=== PATIENT | female | born 1990 | race Caucasian/White ===

== ENCOUNTER 2017-09-22 18:31 | Day surgery (SDC) | payer OTHER ==
[2017-09-22 19:29] VITALS: BP 120/72; TEMP 99.6; BMI 38.0
--- NOTE | 2017-09-22 20:58 | PDOC.LDHP ---
Labor and Delivery H&P Chief complaint: other (discharge) HPI: 27 yo @ 31.3 WGA by 14.2 wk sono here for pink colored vaginal discharge noted on her underwear for the past 2 hours. Denies any associated ctxs, pelvic pain, juju vaginal bleeding, vaginal itching/pain, dysuria, cloudy urine, flank pain, fevers/chills, or LOF. Reports good movement. No other concerns. Current gestational age (weeks): 31 (3) Dating criteria: second trimester ultrasound (14.2) Grav: 1 Para: 0 Current complications: other (1)tobacco abuse 2)obesity 3)h/o UTI 4) anemia of ) Abnormal US findings: No (normal anatomy, male fetus, EFW 80.6% on 19 wk sono, anterior placenta) Current medications: none Previous surgical history: none Social history: tobacco use - Physical Exam Vital signs reviewed and normal: yes General: NAD, resting, other (does not feel contractions) Heart: RRR Lungs: nonlabored breathing Abdomen: NTTP Extremeties: pitting edema (1+) FHT: category 1 (baseline 125 bpm), variability present (moderate) [place] contractions every: sporadic - Vaginal Exam cm dilated: 0 Effacement: 25% Station: -3 - OB Labs Blood type: A RH: positive Antibody Screen: negative HIV: negative RPR: negative HEPSAg: negative 1 hour GCT: negative (51) GBS: unknown Rubella: immune Additional Labs: Initial Ucx positive for enterobacter s/p treatment w/ negative JULIANO Negative Quad screen A1c 5.1% CT/GC negative Pap NILM - Assessment 27 yo @ 31.3 wks with: - Plan -: 1) Vaginal discharge -VP3 pending -No recent sexual intercourse and previous STD testing negative 2) Painless contractions, PTL r/o -FFN pending, will defer cervical length if negative -Os closed on cervical exam, r/p in 1-2 hours if ctxs persist -Oral hydration -VP3, UA pending 3) SIUP in 3T -Few complications so far, see below 4) Obesity -A1c and 1h GTT WNL - weight ok on 2T US 5) Tobacco abuse -continue to encourage cessation 6) Anemia of -continue iron 7) H/o UTI, s/p negative JULIANO -R/p UA pending <Wil Moreno - Last Filed: 09/22/17 20:54> <Blake Johnson - Last Filed: 09/22/17 21:26> Allergies/Adverse Reactions: Allergies Allergy/AdvReac Type Severity Reaction Status Date / Time No Known Allergies Allergy Verified 09/22/17 19:35 Attending Addendum - Attending Addendum Date/Time: 09/22/172125 I personally evaluated the patient and discussed the management with [Josh] I agree with the History, Examination, Assessment and Plan. <Blake Johnson - Last Filed: 09/22/17 21:26>
[2017-09-22 21:11] LABS: Bilirubin Negative (Negative); Blood, Urine Negative (Negative); Clarity CLEAR (Clear); Glucose, Urine (Dipstick) Negative (Negative); Leukocyte Negative (Negative); Nitrite Negative (Negative); Protein, Urine (Dipstick) Negative (Neg-Trace); Specific Gravity, Urine 1.007 (1.002-1.036)
[2017-09-22 21:14] LABS: Pathc Cast-AUWi Flag 0.29 (0-2.49)
[2017-09-22 21:21] LABS: Bacteria/HPF None Seen HPF (None Seen); Hyaline Casts/LPF 0-3 HYALINE CAST LPF (0-3 Hyaline); RBC/HPF 0-3 HPF (0-3); Squamous Epithelial 0-3 HPF (0-3); WBC/HPF 0-3 HPF (0-3)
[2017-09-22 21:33] LABS: FFN Internal QC Analyzer PASS (PASS); FFN Internal QC Cassette PASS (PASS); Fetal Fibronectin Negative (Negative)
--- NOTE | 2017-09-22 22:22 | PDOC.EVN ---
Event Note - Event Note Event Note: VP3 negative but clinical suspicion high for BV. Will go ahead and discharge and treat empirically for 7 days with metronidazole. Patient has f/u scheduled with PNC in ~10 days. Can have further evaluation at that time if symptoms not resolved. strip remains category I, contractions resolved after hydration. <Wil Moreno - Last Filed: 09/22/17 22:21> Attending Addendum - Attending Addendum Date/Time: 09/22/17 3007 I evaluated the patient and discussed the management with Dr. Moreno. I agree with the History, Examination, Assessment and Plan. <Blake Johnson - Last Filed: 09/22/17 22:46>
== END 2017-09-22 22:54 | disposition home or self-care (01) ==
LOC: L&D/OP 18:31
PROVIDERS: ATTEND Obstetrics & Gynecology
DX: O99.89 Other specified diseases and conditions complicating pregnancy, childbirth and the puerperium (principal); N89.8 Other specified noninflammatory disorders of vagina; O99.333 Smoking (tobacco) complicating pregnancy, third trimester; F17.200 Nicotine dependence, unspecified, uncomplicated; O99.013 Anemia complicating pregnancy, third trimester; O99.213 Obesity complicating pregnancy, third trimester; E66.9 Obesity, unspecified; Z68.38 Body mass index [BMI] 38.0-38.9, adult; Z3A.31 31 weeks gestation of pregnancy
CPT/HCPCS: 81001; 82731; 87480; 87510; 87660

== ENCOUNTER 2017-11-21 22:17 | Inpatient (IN) | payer MEDICAID, OTHER ==
[~2017-11-21 22:17] MED LIST: Bupivacaine HCl 0.5%/Epinephrine 1:200,000/PF 30 ml Vial ONE; Bupivacaine/Epinephrine 0.25% 30 ML VIAL ONE; Lidocaine 2% MPF 10 ML AMP (For Epidural Use) ONE
[2017-11-21] MEDS ORDERED: Ondansetron HCl/PF 4 MG/2 ML Vial IVP PRN (23:17)
[2017-11-21] MEDS ORDERED: Promethazine HCl 25 MG/ML VIAL IM PRN (23:17)
[2017-11-21 23:19] VITALS: BMI 40.4
[2017-11-21] MEDS ORDERED: Ibuprofen 800 MG TAB PO PRN (23:23)
[2017-11-21] MEDS ORDERED: Methylergonovine 0.2 MG/ML VIAL IM PRN (23:23)
[2017-11-21] MEDS ORDERED: Carboprost 250 MCG/ML AMP IM PRN (23:23)
[2017-11-21] MEDS ORDERED: Lidocaine 1% (PF) 30 ML VIAL SC PRN (23:23)
[2017-11-21] MEDS ORDERED: Misoprostol 200 MCG TAB PR PRN (23:23)
[2017-11-21] MEDS: Lactated Ringer's 1,000 ML IV SCH (23:30)
[2017-11-21 23:56] LABS: Hemoglobin 11.6 g/dL (12.0-16.0); Mean Corpuscular HGB CONC 35.1 g/dL (32.0-36.0); Mean Corpuscular Hemoglobin 30.9 pg (27.0-31.0); Mean Corpuscular Volume 88.1 fL (78.0-98.0); Mean Platelet Volume 6.9 fL (7.4-10.4); Platelet Count 348 thou/uL (130-400); RBC Distribution Width 12.7 % (11.5-14.5); Red Blood Cell (RBC) Count 3.76 mill/uL (4.20-5.40); White Blood Cell (WBC) Count 14.6 thou/uL (4.8-10.8)
[2017-11-22] MEDS: Misoprostol 100 MCG TAB VAG SCH ×5 (00:31→18:59)
--- NOTE | 2017-11-22 00:43 | PDOC.FPROB ---
FMR OB H&P: HPI - History of Present Illness Chief Complaint: Elective IOL History of Present Illness: 27YO @ 40.1 weeks consistent w/ 14.2 week sono who presents for an elective induction of labor. has been uncomplicated w/ no abnormal findings on U/S. Patient was /-3 in clinic yesterday. No concerns at this point. Is feeling some contractions periodically and has been feeling baby move. No vaginal discharge, fluid loss, or bleeding. Primary Care Physician: Dr. Latanya Galarza FMR OB H&P: Current - Care : 1 Para: 0 Due date: 11/21/17 - OB Labs Blood type: A RH: positive Antibody Screen: negative HIV: negative RPR: negative HepBsAg: negative Rubella: immune Quad screen: negative Urine drug screen: negative Gonorrhea: negative Chlamydia: negative Pap Smear: WNL 1 hour gtt: 115 - WNL A1c: 5.2 GBS: negative FMR OB H&P: History - Past Medical History PMH: None - OB History OB History: No previous pregnancies. Never had an abnormal pap. - Surgical History Sx History: None. - Social History Social History: + for tobacco abuse: down to 2 cigarettes/day - Family History Family History: DM - grandmother FMR OB H&P: Medications - Current Home Medications: Medication Instructions Recorded Confirmed Type Ferrous Sulfate 325 mg PO DAILY 09/22/17 11/21/17 History 21/Iron Fu/Folic Acid 1 tablet PO DAILY 09/22/17 11/21/17 History [ Complete Caplet] Allergies/Adverse Reactions: Allergies Allergy/AdvReac Type Severity Reaction Status Date / Time No Known Allergies Allergy Verified 09/22/17 19:35 FMR OB H&P: Vital Signs - Maternal Vital signs: Vital Signs - First Documented Temp Pulse Resp BP 98.9 F 99 18 127/73 11/21/17 22:22 11/21/17 22:22 11/21/17 22:22 11/21/17 22:22 - Heart Tones Variability: moderate Deceleration: absent Category: category 1 FMR OB H&P: Physical Exam - Physical Exam General: NAD, awake, alert and oriented HEENT: normocephalic and atraumatic Heart: RRR, normal S1/S2 General: CTAB, no respiratory distress, no wheezing Abdomen: gravid, non-tender Musculoskeletal: normal gait and station, FROM in all four extremities Neurological: cranial nerves II through XII intact, sensation to pain,touch and proprioception grossly normal Skin: no rash, good tugor Psychiatric: normal mood and affect - Pelvic Exam Vulva: no discharge, no blood Presentation: vertex Estimated Weight: 9 lbs FMR OB H&P: Results - Labs Lab results: Laboratory Results - last 24 hr 11/21/17 11/21/17 23:40 23:40 WBC 14.6 H RBC 3.76 L Hgb 11.6 L Hct 33.1 L MCV 88.1 MCH 30.9 MCHC 35.1 RDW 12.7 Plt Count 348 MPV 6.9 L Blood Type A POSITIVE Antibody Screen NEGATIVE FMR OB H&P: A/P - Problem List (1) Term Current Visit: Yes Status: Acute Code(s): Z34.80 - ENCOUNTER FOR SUPRVSN OF NORMAL , UNSP TRIMESTER Assessment and Plan: 27YO @ 40.1 wks consistent with 14.2 wk sono presenting for an elective IOL. - was 50/-3 in clinic yesterday - check @ 24:30 50/-3 and given cytotec - will recheck in 4 hours to evaluate labor progress Discussion: Date/Time: 11/22/1740 This H&P was discussed with Dr. Helm and Dr. Dey who agree with the above documentation and plan.
[2017-11-22 00:48] LABS: Syphilis Antibody Nonreactive (Nonreactive); Syphilis Antibody Index 0.04 S/CO (<1.00 Non-Reactive)
[2017-11-22 00:49] LABS: HBSAg Index 0.17 S/CO (0-0.99); Hep B Surf Ag Non-Reactive S/CO (NonReactive)
--- NOTE | 2017-11-22 04:41 | PDOC.LDPN ---
Labor & Delivery Progress Note - Subjective Subjective: comfortable - Objective Vital signs reviewed and normal: yes General: NAD, resting Uterine fundus: non tender Dilation: 3 Effacement: 50% Station: -2 FHT: category 1, variability present - Assessment (1) Term Code(s): Z34.80 - ENCOUNTER FOR SUPRVSN OF NORMAL , UNSP TRIMESTER Current Visit: Yes Status: Acute Plan: labor augmentation, other (Cytotec for cervical ripening) -: 27YO @ 40.1 wks consistent with 14.2 wk sono presenting for an elective IOL. - Was /-3 in clinic yesterday. - Check @ 04:30 unchanged from 1st check (/-2) so patient was given a second dose of cytotec. - Will recheck in 4 hours to evaluate labor progress.
[2017-11-22] MEDS: Lactated Ringer's 1,000 ML IV SCH ×3 (07:48→19:45)
[2017-11-22] MEDS ORDERED: NS w/ Oxytocin 10 units 500 ML ONE (08:35)
[2017-11-22] MEDS ORDERED: Fentanyl 100 MCG/2 ML VIAL SLOW IVP PRN (08:51)
--- NOTE | 2017-11-22 08:51 | PDOC.LDPN ---
Labor & Delivery Progress Note - Subjective Subjective: comfortable - Objective Vital signs reviewed and normal: yes General: resting Uterine fundus: non tender Dilation: 3 Effacement: 50% Station: -2 FHT: category 1 (120/moderate/+accel/no decel) [place] contractions every: q2-6 min, couplets - Assessment (1) Term Code(s): Z34.80 - ENCOUNTER FOR SUPRVSN OF NORMAL , UNSP TRIMESTER Current Visit: Yes Status: Acute (2) Tobacco abuse Code(s): Z72.0 - TOBACCO USE Current Visit: Yes Status: Acute (3) Obesity affecting Code(s): O99.210 - OBESITY COMPLICATING , UNSPECIFIED TRIMESTER Current Visit: Yes Status: Acute (4) Anemia affecting Code(s): O99.019 - ANEMIA COMPLICATING , UNSPECIFIED TRIMESTER Current Visit: Yes Status: Acute Plan: pitocin for augmentation -: 27 yo at 40.1w (EDC 11/21/17) by LMP/14.2w sono here for elective IOL 1. IOL - S/p cytotec x2, now /-2 with nonpainful contractions - Will augment with pitocin - Epidural when desired 2. Tobacco abuse - Counseled cessation through 3. Anemia of 4. Obesity - 1 hour GTT 58 - a1c 5.1 - Quad screen negative 5. Anterior placenta 6. Pap NILM 7. GBS negative
--- NOTE | 2017-11-22 12:14 | PDOC.LDPN ---
Labor & Delivery Progress Note - Subjective Subjective: comfortable - Objective Vital signs reviewed and normal: yes General: resting Uterine fundus: non tender Dilation: 3 Effacement: 50% (60) Station: -3 FHT: category 1 [place] contractions every: 4 - Assessment (1) Term Code(s): Z34.80 - ENCOUNTER FOR SUPRVSN OF NORMAL , UNSP TRIMESTER Current Visit: Yes Status: Acute (2) Tobacco abuse Code(s): Z72.0 - TOBACCO USE Current Visit: Yes Status: Acute (3) Obesity affecting Code(s): O99.210 - OBESITY COMPLICATING , UNSPECIFIED TRIMESTER Current Visit: Yes Status: Acute (4) Anemia affecting Code(s): O99.019 - ANEMIA COMPLICATING , UNSPECIFIED TRIMESTER Current Visit: Yes Status: Acute -: 27 yo at 40.1w (EDC 11/21/17) by LMP/14.2w sono here for elective IOL 1. IOL - S/p cytotec x2, now /-2 with nonpainful contractions - Continue pitocin for augmentation - Epidural when desired 2. Tobacco abuse - Counseled cessation through 3. Anemia of 4. Obesity - 1 hour GTT 58 - a1c 5.1 - Quad screen negative 5. Anterior placenta 6. Pap NILM 7. GBS negative
--- NOTE | 2017-11-22 15:51 | PDOC.LDPN ---
Labor & Delivery Progress Note - Subjective Subjective: comfortable - Objective Vital signs reviewed and normal: yes General: resting Uterine fundus: non tender Dilation: 3 Effacement: 50% (60) Station: -2 FHT: category 1 (120/mod/+accels/no decels) [place] contractions every: q2 - Assessment (1) Term Code(s): Z34.80 - ENCOUNTER FOR SUPRVSN OF NORMAL , UNSP TRIMESTER Current Visit: Yes Status: Acute (2) Tobacco abuse Code(s): Z72.0 - TOBACCO USE Current Visit: Yes Status: Acute (3) Obesity affecting Code(s): O99.210 - OBESITY COMPLICATING , UNSPECIFIED TRIMESTER Current Visit: Yes Status: Acute (4) Anemia affecting Code(s): O99.019 - ANEMIA COMPLICATING , UNSPECIFIED TRIMESTER Current Visit: Yes Status: Acute -: 27 yo at 40.1w (EDC 11/21/17) by LMP/14.2w sono here for elective IOL 1. IOL - S/p cytotec x2, now /-2 with nonpainful contractions - Continue pitocin augmentation, will offer balloon or AROM - Epidural when desired 2. Tobacco abuse - Counseled cessation through 3. Anemia of 4. Obesity - 1 hour GTT 58 - a1c 5.1 - Quad screen negative 5. Anterior placenta 6. Pap NILM 7. GBS negative
--- NOTE | 2017-11-22 17:18 | PDOC.LDPN ---
Labor & Delivery Progress Note - Subjective Subjective: painful contractions - Objective Vital signs reviewed and normal: yes General: resting Uterine fundus: non tender Dilation: 3 Effacement: 50% (60) Station: -2 FHT: category 1 (120/mod/+accel/no decel) [place] contractions every: q2 Other exam findings: SROM, clear fluid - Assessment (1) Term Code(s): Z34.80 - ENCOUNTER FOR SUPRVSN OF NORMAL , UNSP TRIMESTER Current Visit: Yes Status: Acute (2) Tobacco abuse Code(s): Z72.0 - TOBACCO USE Current Visit: Yes Status: Acute (3) Obesity affecting Code(s): O99.210 - OBESITY COMPLICATING , UNSPECIFIED TRIMESTER Current Visit: Yes Status: Acute (4) Anemia affecting Code(s): O99.019 - ANEMIA COMPLICATING , UNSPECIFIED TRIMESTER Current Visit: Yes Status: Acute Plan: continue plan of care, pitocin for augmentation -: 27 yo at 40.1w (EDC 11/21/17) by LMP/14.2w sono here for elective IOL 1. IOL - S/p cytotec x2, now /-2 with increasingly painful contractions - Continue pitocin augmentation, SROM clear fluid noted on speculum exam before attempt of balloon placement - Epidural when desired 2. Tobacco abuse - Counseled cessation through 3. Anemia of 4. Obesity - 1 hour GTT 58 - a1c 5.1 - Quad screen negative 5. Anterior placenta 6. Pap NILM 7. GBS negative
[2017-11-22] MEDS: Bupivacaine 0.75% 13.4 ML, fentaNYL Citrate/PF 400 MCG in Sodium Chloride 0.9% 78.6 ML EPIDURAL SCH (18:24)
[2017-11-22] MEDS ORDERED: diphenhydrAMINE 50 MG/ML VIAL IVP PRN (19:35)
[2017-11-22] MEDS ORDERED: Promethazine HCl 25 MG/ML VIAL IM PRN (19:35)
[2017-11-22] MEDS ORDERED: ePHEDrine/0.9% NaCl/PF SYRINGE 50 mg/10 ml SLOW IVP PRN (19:35)
[2017-11-22] MEDS ORDERED: Naloxone HCl 0.4 mg/ml Vial IVP PRN ×2 (19:35)
[2017-11-22] MEDS ORDERED: Acetaminophen 325 MG TAB PO PRN (19:35)
[2017-11-22] MEDS ORDERED: Lactated Ringer's 500 ML IV PRN (19:35)
[2017-11-22] MEDS ORDERED: Ondansetron HCl/PF 4 MG/2 ML Vial IVP PRN (19:35)
[2017-11-22] MEDS ORDERED: Eucerin (Mineral Oil/Petrolatum,White) 30 gm Jar TOP PRN (19:35)
[2017-11-22] MEDS ORDERED: Communication Order-Pharmacy FS SCH (19:45)
[2017-11-22] MEDS ORDERED: fentaNYL Citrate/PF 400 MCG, Bupivacaine 0.5% 20 ML in Sodium Chloride 0.9% 72 ML EPIDURAL SCH (19:45)
--- NOTE | 2017-11-22 21:36 | PDOC.LDPN ---
Labor & Delivery Progress Note - Subjective Subjective: comfortable, loss of fluid - Objective Vital signs reviewed and normal: yes General: NAD, resting Uterine fundus: non tender Dilation: 5 Effacement: 90% Station: -2 FHT: category 1, variability present (Accelerations present. ) [place] contractions every: 2-4 minutes Other exam findings: MVUs subadequate at 190-200 over 10 minutes. IUPC placed: yes Resuscitative measures: maternal IV fluids - Assessment (1) Term Code(s): Z34.80 - ENCOUNTER FOR SUPRVSN OF NORMAL , UNSP TRIMESTER Current Visit: Yes Status: Acute -: 27 yo at 40.1w (EDC 11/21/17) by LMP/14.2w sono here for elective IOL. 1. IOL - S/p cytotec x2 & epidural, now /-2 - Continue pitocin augmentation - recheck in 4 hours 2. Tobacco abuse - Counseled cessation through 3. Anemia of - Taking PNV and ferrous sulfate 4. Obesity - 1 hour GTT 58 - a1c 5.1 - Quad screen negative 5. Anterior placenta 6. Pap NILM 7. GBS negative
[2017-11-22] MEDS ORDERED: CEFAZOLIN/Water 2 GM/20 ML SYRINGE ONE (22:50)
[2017-11-22] MEDS ORDERED: NS w/ Oxytocin 10 units 500 ML IV SCH (23:15)
[2017-11-23] MEDS: Bupivacaine 0.75% 13.4 ML, fentaNYL Citrate/PF 400 MCG in Sodium Chloride 0.9% 78.6 ML EPIDURAL SCH
--- NOTE | 2017-11-23 01:27 | PDOC.LDPN ---
Labor & Delivery Progress Note - Subjective Subjective: comfortable - Objective Vital signs reviewed and normal: yes General: NAD, resting Dilation: 10 Effacement: 100% Station: 0 FHT: category 1, variability present [place] contractions every: 2 minutes IUPC placed: yes Resuscitative measures: maternal IV fluids, maternal position change - Assessment (1) Term Code(s): Z34.80 - ENCOUNTER FOR SUPRVSN OF NORMAL , UNSP TRIMESTER Current Visit: Yes Status: Acute -: 27 yo at 40.1w (EDC 11/21/17) by LMP/14.2w sono here for elective IOL. 1. IOL - s/p cytotec x2 & epidural, now - Will let patient labor down until she feels an urge to push - Will recheck ~15-20 minutes 2. Tobacco abuse - Counseled cessation through 3. Anemia of - Taking PNV and ferrous sulfate 4. Obesity - 1 hour GTT 58 - a1c 5.1 - Quad screen negative 5. Anterior placenta 6. Pap NILM 7. GBS negative
[2017-11-23] MEDS: Lactated Ringer's 1,000 ML IV SCH (01:48)
[2017-11-23] MEDS: NS / Oxytocin 40 units/1000ml 1,000 ML IV PRN ×2 (05:23→07:54)
--- NOTE | 2017-11-23 06:25 | PDOC.OPDEL ---
OB Operative/Delivery Note Delivery Dr/Surgeon: Dr. Latanya Galarza Assist: Dr. Vianney Kincaid Pre-Delivery Diagnosis: active labor Procedure/Post Delivery Dx: other (second degree midline perineal laceration s/ p repair) Weeks gestation: 40 (40.2) Anesthesia: epidural - Findings A Sex: male Weight: 10 kg (10lb.8oz.) - 1 min: 9 - 5 min: 9 - Additional Findings/Plan Placenta delivered: spontaneous Repaired Obstetrical Laceration: 2nd degree Estimated blood loss: 1493mL Post delivery plan: routine recovery
[2017-11-23] MEDS ORDERED: Bisacodyl 10 MG SUPP PR PRN (07:45)
[2017-11-23] MEDS ORDERED: NS / Oxytocin 40 units/1000ml 1,000 ML IV SCH (07:45)
[2017-11-23] MEDS ORDERED: Adacel (T-DAP) 0.5 ML VIAL IM ONE (07:45)
[2017-11-23] MEDS ORDERED: Preparation H Ointment 28 GM TUBE PR PRN (07:45)
[2017-11-23] MEDS ORDERED: Milk Of Magnesia 30 ML UDCUP PO PRN (07:45)
[2017-11-23] MEDS ORDERED: Lanolin Ointment 7 GM TUBE TOP PRN (07:45)
[2017-11-23] MEDS ORDERED: diphenhydrAMINE 25 MG CAP PO PRN (07:45)
[2017-11-23] MEDS: Ferrous Sulfate 325 MG TAB PO SCH ×2 (09:10→18:09)
[2017-11-23] MEDS: Prenatal Vitamin 1 TAB PO SCH (09:50)
[2017-11-23] MEDS: Ibuprofen 800 MG TAB PO SCH ×2 (09:50→16:34)
[2017-11-23] MEDS: Docusate Calcium (SURFAK) 240 MG CAP PO SCH ×2 (09:50→21:48)
[2017-11-23] MEDS: Misoprostol 100 MCG TAB VAG SCH ×3 (09:56→10:00)
--- NOTE | 2017-11-23 10:10 | DN-2 ---
DELIVERING PHYSICIAN: Latanya Galarza M.D. ASSISTING PHYSICIAN: Dr. Vianney Kincaid ATTENDING PHYSICIAN: Dr. Eliane Dey. PROCEDURE: Spontaneous vaginal delivery. ANESTHESIA: Epidural. QBL: 1493 mL. PREOPERATIVE DIAGNOSES: 1. Term intrauterine in labor. 2. Obesity. 3. Anemia of . 4. Tobacco abuse. POSTOPERATIVE DIAGNOSES: 1. Term intrauterine , delivered. 2. Obesity. 3. Anemia. 4. Tobacco abuse. 5. hemorrhage. 6. Second degree perineal laceration status post repair. 7. Macrosomic . INDICATIONS: A 27-year-old female, G1, P0, presented for elective induction of labor on 11/21/2017 a t 40.0 week. DELIVERY NOTE: This is a 27-year-old female G1 now P1-0-0-1, at 40.0 weeks who delivered a viable ma sonia at 0511. Following an uneventful antepartum course, a vigorous male infant was delivered o alexi a midline second degree laceration in the right occipital anterior position. Anterior shoulder a nd the remainder of body delivered. No nuchal cord was noted. The head was held down and mouth and nares were bulb suctioned. Cord was clamped and cut after delayed cord clamping at 1 minute and cord blood collected. Placenta delivered intact with 3-vessel cord noted. Fundal massage was performed and the fundus was initially boggy. The cervix and vagina were inspected and found to have a midline second degree laceration. 800 mcg of Cytotec was placed rectally for ongoing poor tone as well as a bimanual massage and bolus of Pitocin. Clots were evacuated from the uterus and she became more fir m. At that time, attention was turned to the midline second degree laceration, which was repaired in the usual fashion with 2-0 and 3-0 Vicryl suture with good approximation and hemostasis. The infant went to nursery in good condition for routine care. Apgars were 9 and 9 at 1 and 5 minutes respectively and the infant was 10 pounds and 8 ounces. The patient tolerated delivery well and went to after routine recovery and care.
[2017-11-23] MEDS ORDERED: Benzocaine/Menthol 20-0.5% 60 ML CAN TOP PRN (11:08)
[2017-11-23] MEDS ORDERED: HYDROcodone/Acetaminophen 5/325 mg Tablet PO PRN ×3 (17:31→18:21)
[2017-11-23] MEDS: HYDROcodone/Acetaminophen 5/325 mg Tablet PO PRN (21:48)
[2017-11-24] MEDS: Ibuprofen 800 MG TAB PO SCH ×4 (05:59→20:08)
[2017-11-24 06:10] LABS: Hemoglobin 8.4 g/dL (12.0-16.0); Mean Corpuscular HGB CONC 34.3 g/dL (32.0-36.0); Mean Corpuscular Hemoglobin 30.9 pg (27.0-31.0); Mean Corpuscular Volume 89.9 fL (78.0-98.0); Mean Platelet Volume 6.9 fL (7.4-10.4); Platelet Count 297 thou/uL (130-400); RBC Distribution Width 12.9 % (11.5-14.5); Red Blood Cell (RBC) Count 2.72 mill/uL (4.20-5.40); White Blood Cell (WBC) Count 16.6 thou/uL (4.8-10.8)
[2017-11-24] MEDS: HYDROcodone/Acetaminophen 5/325 mg Tablet PO PRN (06:17)
--- NOTE | 2017-11-24 08:39 | PDOC.PP ---
Post Progress Note Post Day #: 1 Subjective: Feeling ok. Significant pain with urination and straight cath placed yesterday followed by beck overnight. Ice pack in place now and taking [place] PRN with pain control currently adequate. She does not feel is going well and he is not latching. PO intake tolerated: yes Ambulation: yes Vital Signs (12 hours) Temp Pulse Resp 11/24/17 04:00 98.1 F 95 20 11/24/17 00:00 98.1 F 95 20 Weight Weight 135.171 kg - Physical Examination General: NAD Cardiovascular: no m/r/g, RRR Respiratory: clear to auscultation bilaterally, non-labored breathing Abdominal: + bowel sounds, lochia (minimal), no distention, appropriately TTP Fundus firm & at: umbilicus Deviation from normal: trace edema to mid-[place] BL Skin: no rash Neurological: no gross focal deficits Psychiatric: A&Ox3, normal affect Result Diagrams: 11/24/17 05:43 Additional Labs: Post Labs Blood Type A POSITIVE 11/21/17 23:40 Hep Bs Antigen Non-Reactive S/CO (NonReactive) 11/21/17 23:40 (1) Term Code(s): Z34.80 - ENCOUNTER FOR SUPRVSN OF NORMAL , UNSP TRIMESTER Status: Acute (2) Tobacco abuse Code(s): Z72.0 - TOBACCO USE Status: Acute (3) Obesity affecting Code(s): O99.210 - OBESITY COMPLICATING , UNSPECIFIED TRIMESTER Status: Acute (4) Anemia affecting Code(s): O99.019 - ANEMIA COMPLICATING , UNSPECIFIED TRIMESTER Status : Acute - Assessment/Plan 27 yo now 1001 s/p at 40.2w (EDC 11/21/17) by LMP/14.2w sono 1. PPD #1, PPH and 2nd degree lac - midline 2nd degree lac, s/p repair - difficulty voiding and beck removed this morning - continue pain control, ice packs and will monitor ability to void - will request Meenakshi to work with her today on if able 2. Tobacco abuse - Counseled cessation through - Stressed importance of minimizing/eliminating exposure 3. Anemia of now with PPH - H&H 8.4/24.5 - Consider repeat in a.m., monitor vital signs - Continue PNV and ferrous sulfate 4. Obesity - 1 hour GTT 58 - a1c 5.1 - Quad screen negative 5. Pap NILM 6. GBS negative
[2017-11-24] MEDS: Ferrous Sulfate 325 MG TAB PO SCH ×2 (09:45→17:24)
[2017-11-24] MEDS: Prenatal Vitamin 1 TAB PO SCH (09:45)
[2017-11-24] MEDS: Docusate Calcium (SURFAK) 240 MG CAP PO SCH ×2 (09:45→20:08)
[2017-11-24 21:49] VITALS: BP 118/68; TEMP 98.2
== END 2017-11-24 21:50 | disposition home or self-care (01) | DRG 774 ==
LOC: L&D 22:17 → 3SW 11-23 08:51
PROVIDERS: ADMIT Student in an Organized Health Care Education/Training Program; ATTEND Student in an Organized Health Care Education/Training Program
PROC: 10E0XZZ Delivery of Products of Conception, External Approach (ICD-10-PCS; principal; 2017-11-23)
PROC: 0KQM0ZZ Repair Perineum Muscle, Open Approach (ICD-10-PCS; 2017-11-23)
PROC: 10907ZC Drainage of Amniotic Fluid, Therapeutic from Products of Conception, Via Natural or Artificial Opening (ICD-10-PCS; 2017-11-23)
PROC: 3E033VJ Introduction of Other Hormone into Peripheral Vein, Percutaneous Approach (ICD-10-PCS; 2017-11-23)
DX: O99.02 Anemia complicating childbirth (principal); O72.1 Other immediate postpartum hemorrhage; Z68.41 Body mass index [BMI] 40.0-44.9, adult; O99.214 Obesity complicating childbirth; E66.9 Obesity, unspecified; Z3A.40 40 weeks gestation of pregnancy; Z37.0 Single live birth; O99.334 Smoking (tobacco) complicating childbirth; F17.210 Nicotine dependence, cigarettes, uncomplicated; O70.1 Second degree perineal laceration during delivery; O36.63X0 Maternal care for excessive fetal growth, third trimester, not applicable or unspecified
CPT/HCPCS: 36415; 51702; 76815; 85027; 86780; 86850; 86900; 86901; 87340; C1726; J0670; J2001; J3010; J7050

== ENCOUNTER 2019-02-06 18:06 | Emergency (ER) | payer OTHER ==
[2019-02-06] MEDS ORDERED: predniSONE 20 MG TAB ONE (19:22)
[2019-02-06] MEDS ORDERED: Dexamethasone 4 mg/ml Vial ONE (19:22)
== END 2019-02-06 19:40 | disposition home or self-care (01) ==
LOC: ERS 18:06
DX: L50.9 Urticaria, unspecified (principal); F17.210 Nicotine dependence, cigarettes, uncomplicated
CPT/HCPCS: 96372; 99282; J1100; J7512

== ENCOUNTER 2020-04-30 09:12 | Outpatient (CLI) | payer OTHER ==
[2020-05-01 02:11] LABS: SARS-CoV-2 MS2 Positive; SARS-CoV-2 N Gene Negative; SARS-CoV-2 S Gene Negative; SARS-CoV-2 by NAA Not Detected (NotDetected); SARS-CoV-2 orf1ab Negative
== END 2020-04-30 09:13 | disposition home or self-care (01) ==
LOC: LABBT 09:12
PROVIDERS: ATTEND Family Medicine
DX: Z01.812 Encounter for preprocedural laboratory examination (principal); Z20.828 Contact with and (suspected) exposure to other viral communicable diseases
CPT/HCPCS: 87635; U0003

== ENCOUNTER → 2020-05-05 18:50 | Inpatient (IN) | payer MEDICAID, OTHER ==
[2020-05-03 20:47] VITALS: BMI 40.9
[2020-05-03 20:55] LABS: Hemoglobin 10.4 g/dL (12.0-16.0); Mean Corpuscular HGB CONC 33.3 g/dL (32.0-36.0); Mean Corpuscular Hemoglobin 30.2 pg (27.0-31.0); Mean Corpuscular Volume 90.8 fL (78.0-98.0); Mean Platelet Volume 7.7 fL (7.4-10.4); Platelet Count 254 thou/uL (130-400); RBC Distribution Width 12.5 % (11.5-14.5); Red Blood Cell (RBC) Count 3.45 mill/uL (4.20-5.40)
[2020-05-03] MEDS: Misoprostol 100 MCG TAB PO SCH (20:59)
[2020-05-03 21:39] LABS: Syphilis Antibody Nonreactive (Nonreactive); Syphilis Antibody Index 0.03 S/CO (<1.00 Non-Reactive)
[2020-05-03 23:01] LABS: HBSAg Index 0.25 S/CO (0-0.99); Hep B Surf Ag Non-Reactive S/CO (NonReactive)
[2020-05-04] MEDS: Misoprostol 100 MCG TAB PO SCH ×3 (00:47→06:40)
[2020-05-04] MEDS: Butorphanol Tartrate 1 MG/ML VIAL SLOW IVP PRN ×3 (02:21→06:39)
[2020-05-04] MEDS: NS w/ Oxytocin 30 units 500 ML IV PRN ×2 (13:18→14:40)
[2020-05-04] MEDS: Ferrous Sulfate 325 MG TAB PO SCH (17:27)
[2020-05-04] MEDS: Docusate Calcium (SURFAK) 240 MG CAP PO SCH (19:46)
[2020-05-04] MEDS: HYDROcodone/Acetaminophen 5/325 mg Tablet PO PRN (19:47)
[2020-05-05] MEDS: Ibuprofen 800 MG TAB PO SCH ×3 (00:28→17:20)
[2020-05-05] MEDS: HYDROcodone/Acetaminophen 5/325 mg Tablet PO PRN (05:19)
[2020-05-05] MEDS: Ferrous Sulfate 325 MG TAB PO SCH ×2 (08:31→16:56)
[2020-05-05] MEDS: Docusate Calcium (SURFAK) 240 MG CAP PO SCH (09:37)
[2020-05-05 12:00] VITALS: BP 130/66; TEMP 97.8
[~2020-05-05 18:50] MED LIST changes: +Acetaminophen 325 MG TAB PO PRN; +Adacel (T-DAP) 0.5 ML SYRINGE IM ONE; +Benzocaine-Menthol 82.5 ML CAN TOP PRN; +Bisacodyl 10 MG SUPP PR PRN; +Bupivacaine 0.25% HCL 30 ML VIAL ONE; -Bupivacaine HCl 0.5%/Epinephrine 1:200,000/PF 30 ml Vial ONE; +Bupivacaine PF 0.5% 30 ML VIAL ONE; -Bupivacaine/Epinephrine 0.25% 30 ML VIAL ONE; +Carboprost 250 MCG/ML AMP IM PRN; +Communication Order-Pharmacy FS SCH; +Diphenoxylate HCl/Atropine Tablet PO PRN; +Fentanyl 4 mcg/Bup 0.1% Cadd 100 ML ONE; +Fentanyl 4 mcg/Bupivacaine 0.1% Cassette 100 ML EPIDURAL SCH; +HYDROcodone/Acetaminophen 5/325 mg Tablet PO PRN; +Ibuprofen 800 MG TAB PO PRN; +Ibuprofen 800 MG TAB PO SCH; +Lactated Ringer's 500 ML IV PRN; +Lanolin Ointment 7 GM TUBE TOP PRN; +Lidocaine 1% (PF) 30 ML VIAL SC PRN; -Lidocaine 2% MPF 10 ML AMP (For Epidural Use) ONE; +Methylergonovine 0.2 MG/ML VIAL IM PRN; +Milk Of Magnesia 30 ML UDCUP PO PRN; +Misoprostol 200 MCG TAB PR PRN; +NS / Oxytocin 40 units/1000ml 1,000 ML IV PRN; +NS / Oxytocin 40 units/1000ml 1,000 ML IV SCH; +NS w/ Oxytocin 30 units 500 ML IVPB SCH; +Naloxone HCl 0.4 mg/ml Vial IVP PRN; +Ondansetron PF 4 MG/2 ML Vial IVP PRN; +Penicillin G 2.5 MILL.units 2.5 MILL.UNITS in Premix Bag 1 BAG IVPB SCH; +Penicillin G Potassium 5 MILL.UNITS in Sodium Chloride 0.9% 100 ML IVPB SCH; +Prenatal Vitamin 1 TAB PO SCH; +Promethazine HCl 25 MG/ML VIAL IM PRN; +Sodium Chloride 0.9% (PF) 10 ML VIAL ONE; +diphenhydrAMINE 25 MG CAP PO PRN; +diphenhydrAMINE 50 MG/ML VIAL IVP PRN; +ePHEDrine 50 MG/ML VIAL SLOW IVP PRN; +hydrALAZINE 20 MG/ML VIAL SLOW IVP PRN
== END | disposition home or self-care (01) | DRG 807 ==
LOC: EDSTATUS 10-13 16:37 → L&D 05-03 20:13 → 3SW 05-04 16:06
PROVIDERS: ADMIT Family Medicine; ATTEND Family Medicine
PROC: 10E0XZZ Delivery of Products of Conception, External Approach (ICD-10-PCS; principal; 2020-05-03)
PROC: 10907ZC Drainage of Amniotic Fluid, Therapeutic from Products of Conception, Via Natural or Artificial Opening (ICD-10-PCS; 2020-05-03)
DX: O99.214 Obesity complicating childbirth (principal); Z37.0 Single live birth; Z20.822 Contact with and (suspected) exposure to COVID-19; Z3A.39 39 weeks gestation of pregnancy; E66.01 Morbid (severe) obesity due to excess calories
CPT/HCPCS: 36415; 51702; 85027; 86780; 86850; 86900; 86901; 87340; J0595; J2590; S0020